=== PATIENT | female | born 1990 | race Caucasian/White ===

== ENCOUNTER 2019-01-09 19:13 | Emergency (ER) | payer OTHER ==
[~2019-01-09] VITALS: Wt 78.8 kg
[2019-01-09] MEDS ORDERED: ACETAMINOPHEN 325 MG TAB PO STA (20:43)
[2019-01-09 23:07] VITALS: BP 102/70; PULSE 71; RESP 18
--- NOTE | 2019-01-10 00:47 | ERD ---
ER Documentation Chief Complaint Chief Complaint 7 WEEKS PG, VAG BLEED X'S 10 DAYS HPI 28 year-old female who is reportedly 7 weeks , G1, last menstrual cycle 11/08/2018 presenting to the emergency department with complaints of intermittent vaginal bleeding for the past 1 week but worsening today. She used 1 pad throughout the day today. She did see a large clot. She has had an ultrasound during this which was reportedly normal. She denies any fevers, chills, or other symptoms at this time. Associated symptoms include mild pelvic pain. ROS All systems reviewed and are negative except as per history of present illness. Allergies Allergies: Coded Allergies: No Known Allergy (Unverified , 01/09/19) PMhx/Soc Medical and Surgical Hx: pt denies Medical Hx, pt denies Surgical Hx Hx Alcohol Use: No Hx Substance Use: No Hx Tobacco Use: No Smoking Status: Never smoker FmHx Family History: No diabetes Physical Exam Vitals Vital Signs Date Temp Pulse Resp B/P (MAP) Pulse Ox O2 O2 Flow FiO2 Time Delivery Rate 01/09/19 98.2 71 18 102/70 100 Room Air 23:07 (81) 01/09/19 98.8 74 18 129/63 99 19:43 (85) Physical Exam Const: No acute distress Head: Atraumatic Eyes: Normal Conjunctiva ENT: Normal External Ears, Nose and Mouth. Neck: Full range of motion. No meningismus. Resp: Clear to auscultation bilaterally Cardio: Regular rate and rhythm, no murmurs Abd: Soft, non tender, non distended. Normal bowel sounds. No rebound tenderness or guarding. No McBurney's point tenderness. No pelvic tenderness on palpation. Skin: No petechiae or rashes Back: No midline or flank tenderness Ext: No cyanosis, or edema Neur: Awake and alert Psych: Normal Mood and Affect Result Diagram: 01/09/192131 Results 24 hrs Laboratory Tests Test 01/09/19 20:57 01/09/19 21:32 Urine Color YELLOW Urine Clarity SLIGHTLY CLOUDY Urine pH 6.0 Urine Specific [place] 1.027 Urine Ketones NEGATIVE mg/dL Urine Nitrite NEGATIVE mg/dL Urine Bilirubin NEGATIVE mg/dL Urine Urobilinogen NEGATIVE mg/dL Urine Leukocyte Esterase 2+ Jim/ul Urine Microscopic RBC 44 /HPF Urine Microscopic WBC 30 /HPF Urine Squamous Epithelial Cells FEW /HPF Urine Bacteria FEW /HPF Urine Mucus FEW /HPF Urine Hemoglobin 3+ mg/dL Urine Glucose NEGATIVE mg/dL Urine Total Protein NEGATIVE mg/dl White Blood Count 10.0 10^3/ul Red Blood Count 4.48 10^6/ul Hemoglobin 13.6 g/dl Hematocrit 40.6 % Mean Corpuscular Volume 90.6 fl Mean Corpuscular Hemoglobin 30.4 pg Mean Corpuscular Hemoglobin Concent 33.5 g/dl Red Cell Distribution Width 13.0 % Platelet Count 301 10^3/UL Mean Platelet Volume 8.8 fl Immature Granulocytes % 0.300 % Neutrophils % 66.3 % Lymphocytes % 24.7 % Monocytes % 6.6 % Eosinophils % 1.9 % Basophils % 0.2 % Nucleated Red Blood Cells % 0.0 /100WBC Immature Granulocytes # 0.030 10^3/ul Neutrophils # 6.6 10^3/ul Lymphocytes # 2.5 10^3/ul Monocytes # 0.7 10^3/ul Eosinophils # 0.2 10^3/ul Basophils # 0.0 10^3/ul Nucleated Red Blood Cells # 0.0 10^3/ul Beta HCG, Quantitative 854743.0 mIU/ml Current Medications Medications Dose Sig/Maddy Start Time Status Last (Trade) Ordered Route PRN Stop Time Admin Dose Reason Admin 650 mg ONCE STAT 01/09/19 DC 01/09/19 Acetaminophen PO 20:43 21:38 (Tylenol 01/09/19 20:45 Tab) Procedures/MDM 28-year-old female presenting to the emergency department complaining of vaginal bleeding intermittently for the past 1 week. She is reportedly 7 weeks . Obstetrics ultrasound showed a single live intrauterine with heart tones present. Beta hCG was consistent with term of . Urinalysis showed evidence of urinary tract infection, but the patient is Gilberto be treating already being treated by her primary care physician with Macrobid. No evidence of pyonephritis, sepsis, ectopic , ovarian torsion, tubo- ovarian abscess, or other emergencies. Patient stable and appropriate for discharge and further outpatient management with prescriptions. She was in agreement with the diagnosis, plan, need for follow-up, return precautions. Diagnosis most consistent with threatened . Patient was advised to follow-up with her [facility] physician within the next 24 to 48 hours. No evidence of life-threatening pathology at time of discharge. Pt/family in agreement with discharge plan/diagnosis. Pt/family advised to return immediately with any new or worsening symptoms. Follow-up with primary care physician within the next 1- 2 days. [place] [address] Radiology Main Line: [phone] DIAGNOSTIC IMAGING REPORT Patient: JOSE MANUEL ROTHMAN : 1990 Age: 28 Sex: F MR #: [id number] DOS: 01/09/192042 Ordering MD: INDERJIT GONZÁLES PA-C Location: [facility] Room/Bed: PROCEDURE: US OB Limited. CLINICAL INDICATION: with pelvic pain. Vaginal bleeding. TECHNIQUE: Transabdominal and transvaginal color flow, Doppler and oliva scale ultrasound images of the pelvis were obtained. COMPARISON: No prior studies are available for comparison. FINDINGS: Intrauterine gestation: Age: 7 weeks 1 days. Mean crown-rump length: 1.1 cm. Yolk sac: Visualized. heart rate: 152 bpm. Subchorionic collection: None. Uterus: Size: 9.1 x 6.4 x 7.7 cm. Masses: None. Nabothian cysts: None. Right ovary: Size: 2.9 x 2.6 x 2.5 cm. Lesions: None. Vascularity: Normal. Left ovary: Size: 2.7 x 1.8 x 1.7 cm. Lesions: None. Vascularity: Normal. Adnexae: Masses: 1.3 cm left paraovarian cyst. 1.0 cm right paraovarian cyst. Fluid: None. IMPRESSION: Single live intrauterine with an estimated gestational age of 7 weeks 1 day, corresponding to an estimated date of delivery of August 27, 2019. Continued follow-up to assess for normal development is recommended.. Bilateral paraovarian cysts measuring 1.3 cm on the left and 1.0 cm on the right. RPTAT: AA .Marcellus Luu MD, Date Time Electronically viewed and signed by .Marcellus Luu MD, on 01/09/2019 22:22 .P/ CC: INDERJIT GONZÁLES PA-C [id number] [facility] [employer] [facility] Diagnosis: Primary Impression: Vaginal bleeding in patient at less than 20 weeks ges... Condition: Fair Patient Instructions: Bleeding During Early Referrals: [facility] (PCP) [facility] [place] [address] [facility] [address] [place] [address] OFFICE FAX [facility] [address] [place], [place] [id number]STRONG [address] [address] [place] [address] [address] [facility] [address] [facility], [address], [facility] [address] [address] [address] [place] [address] [facility] [address] [place] [address] [facility] [id number] - DEXTER [address]ANGEL [address], [facility] [address] [address] [address] [facility]. [address], [place] [id number] [address] [address] [place], [place] [id number] Additional Instructions: Call your primary care doctor TOMORROW for an appointment during the next 1-2 days.See the doctor sooner or return here if your condition worsens before your appointment time. INDERJIT GONZÁLES PA-C January 10, 2019 00:47
== END 2019-01-09 23:08 | disposition home or self-care (01) ==
LOC: FTE 19:13
DX: O20.9 Hemorrhage in early pregnancy, unspecified (principal); R10.2 Pelvic and perineal pain; Z3A.01 Less than 8 weeks gestation of pregnancy
CPT/HCPCS: 36415; 76801; 76817; 81001; 84702; 85025; 86900; 86901; Z7502; Z7610

== ENCOUNTER 2019-02-22 19:39 | Emergency (ER) | payer OTHER ==
[~2019-02-22] VITALS: Ht 157.5 cm; Wt 81.1 kg
[2019-02-22 19:42] VITALS: Ht 157.5 cm; Wt 81.1 kg
[2019-02-22] MEDS ORDERED: ACETAMINOPHEN 500 MG TAB PO STA (20:10)
--- NOTE | 2019-02-22 20:10 | ERD ---
ER Documentation Chief Complaint Chief Complaint left upper abd pain x 2 weeks, states 13 weeks , denies vb HPI This is a 28-year-old female presents emergency department with complaints of epigastric pain that is on and off for about 2 weeks. Also complains of pelvic pain that is on and off for about a week. Stated that she came here because she is concerned at this time. States that she is 13 weeks . Patient is deaf and mute. Patient communicates by writing. She saw her OB last Sunday. Wrote that her OBs name is Loly and is located on [facility]. Patient is taking Reglan and vitamins at home. Denies. Denies family history of heart attack before the age of 50. LMP: 11/22/2017. JACINTO: 08/25/2019. G1, . Denies headache, head injury, loss of consciousness, dizziness, neck pain, neck stiffness, throat pain, difficulty swallowing, difficulty breathing lying flat, shoulder pain, chest pain, back pain, nausea, vomiting, constipation, diarrhea, urinary symptoms, loss of bowel and bladder control, trauma, injury, falls, difficulty walking due to pain, numbness or tingling sensation, calf pain, recent travel, recent major surgery in the last 3 weeks, calf pain, recent long travel, recent exposure to any illness, recent antibiotic use in the last 3 months, fever, chills, seizures. Past medical history: Denies. Surgical history: Denies. Social: Denies smoking, use of alcoholic beverages, use of illegal drugs. ROS All systems reviewed and are negative except as per history of present illness. Medications Home Meds Active Scripts Metoclopramide* (Reglan*) 10 Mg Tablet, 10 MG PO Q6 PRN for NAUSEA AND/OR VOMITING, #20 TAB Prov:PASILABANAGAAR F 02/22/19 Vit No.124/Iron/FA ( Vitamin Tablet) 1 Each Tablet, 1 EACH PO DAILY, #30 TAB Prov:PASILABAN,KLAR F 02/22/19 Acetaminophen* (Tylophen*) 500 Mg Capsule, 1 CAP PO Q6H PRN for PAIN AND OR ELEVATED TEMP, #20 CAP Prov:PASILABAN,KLAR F 02/22/19 Allergies Allergies: Coded Allergies: No Known Allergy (Unverified , 01/09/19) PMhx/Soc Medical and Surgical Hx: pt denies Surgical Hx Hx Miscellaneous Medical Probl: Yes (DEAF/MUTE) Hx Alcohol Use: No Hx Substance Use: No Hx Tobacco Use: No Smoking Status: Never smoker Physical Exam Vitals Vital Signs Date Temp Pulse Resp B/P (MAP) Pulse Ox O2 O2 Flow FiO2 Time Delivery Rate 02/22/19 98.8 88 18 120/60 96 Room Air 23:23 (80) 02/22/19 99.6 86 18 118/56 99 19:42 (76) Physical Exam Const: No acute distress Head: Atraumatic Eyes: Normal Conjunctiva. Color appears normal for ethnicity. ENT: Normal External Ears, Nose and Mouth. Neck: Full range of motion. No meningismus. Resp: Clear to auscultation bilaterally. Chest area: No vesicular lesions. Examined with female tile layer. No signs of trauma. Cardio: Regular rate and rhythm, no murmurs Abd: Soft, non tender, non distended. Normal bowel sounds. No CVA tenderness. Ambulatory with steady gait and without pain to abdomen. Skin: No petechiae or rashes. Color appears normal for ethnicity. No skin tenting. No signs of severe dehydration. Back: No midline or flank tenderness. Color appears normal for ethnicity. No skin tenting. No signs of severe dehydration. Ext: No cyanosis, or edema Neur: Awake and alert. No neurological deficits. Psych: Normal Mood and Affect Result Diagram: 02/22/19203302/22/192033 Results 24 hrs Laboratory Tests Test 02/22/19 20:34 White Blood Count 10.7 10^3/ul Red Blood Count 4.24 10^6/ul Hemoglobin 12.9 g/dl Hematocrit 37.3 % Mean Corpuscular Volume 88.0 fl Mean Corpuscular Hemoglobin 30.4 pg Mean Corpuscular Hemoglobin Concent 34.6 g/dl Red Cell Distribution Width 12.3 % Platelet Count 292 10^3/UL Mean Platelet Volume 8.9 fl Immature Granulocytes % 0.500 % Neutrophils % 72.1 % Lymphocytes % 19.2 % Monocytes % 7.3 % Eosinophils % 0.5 % Basophils % 0.4 % Nucleated Red Blood Cells % 0.0 /100WBC Immature Granulocytes # 0.050 10^3/ul Neutrophils # 7.7 10^3/ul Lymphocytes # 2.1 10^3/ul Monocytes # 0.8 10^3/ul Eosinophils # 0.1 10^3/ul Basophils # 0.0 10^3/ul Nucleated Red Blood Cells # 0.0 10^3/ul Prothrombin Time 12.3 Sec Prothrombin Time Ratio 1.0 INR International Normalized Ratio 0.90 Activated Partial Thromboplast Time 26.3 Sec Urine Color YELLOW Urine Clarity CLEAR Urine pH 5.0 Urine Specific [place] 1.023 Urine Ketones NEGATIVE mg/dL Urine Nitrite NEGATIVE mg/dL Urine Bilirubin NEGATIVE mg/dL Urine Urobilinogen NEGATIVE mg/dL Urine Leukocyte Esterase NEGATIVE Jim/ul Urine Hemoglobin NEGATIVE mg/dL Urine Glucose NEGATIVE mg/dL Urine Total Protein NEGATIVE mg/dl Sodium Level 138 mmol/L Potassium Level 4.0 mmol/L Chloride Level 106 mmol/L Carbon Dioxide Level 23 mmol/L Anion Gap 9 Blood Urea Nitrogen 9 mg/dl Creatinine 0.42 mg/dl Est Glomerular Filtrat Rate mL/min > 60 mL/min Glucose Level 93 mg/dl Calcium Level 9.8 mg/dl Total Bilirubin 0.3 mg/dl Direct Bilirubin 0.00 mg/dl Indirect Bilirubin 0.3 mg/dl Aspartate Amino Transf (AST/SGOT) 18 IU/L Alanine Aminotransferase (ALT/SGPT) 13 IU/L Alkaline Phosphatase 50 IU/L Total Protein 7.4 g/dl Albumin 4.0 g/dl Globulin 3.40 g/dl Albumin/Globulin Ratio 1.17 Amylase Level 85 U/L Lipase 75 U/L Beta HCG, Quantitative 06608.0 mIU/ml Current Medications Medications Dose Sig/Maddy Start Time Status Last (Trade) Ordered Route PRN Stop Time Admin Dose Reason Admin 500 mg ONCE STAT 02/22/19 DC 02/22/19 Acetaminophen PO 20:10 20:35 (Tylenol 02/22/19 20:16 Tab) Procedures/MDM Diagnostic tests: Urinalysis: Culture urine: Sent. hCG quantitative: 07686.0 Type and Rh: Positive. Blood works: Reviewed. No white count. Gallbladder ultrasound: Cholelithiasis without ultrasound evidence of acute cholecystitis. No evidence of right hydronephrosis. Renal ultrasound: Sonographically unremarkable right kidney. Sonographically unremarkable left kidney. OB ultrasound: Single live intrauterine fetus at approximately 14 weeks 4 days by the above biometrics. The estimated weight is 97 g. Longitudinal lie, cephalic presentation. Unremarkable anterior placenta. Subjectively normal amniotic fluid volume. Treatment: Tylenol. I offered the patient to stay here in the emergency department but she strongly refused. Patient communicated by writing that she prefers to be discharged and that she has good follow-up with her OB Re-evaluation: No episode of emesis here in the emergency department. Denies chest pain, back pain, abdominal pain, pelvic pain, epigastric pain, vaginal bleeding. Negative Baht sign but negative Esther sign (heel jar test). Negative psoas sign. Negative Rovsing sign. No CVA tenderness. No pelvic tenderness. Able to jump twice without developing lower abdominal pain. No signs of hemorrhaging. Patient is comfortable to go home. Differential diagnosis I have low suspicion for pancreatitis, cholecystitis, ectopic , abruptio placenta, hemorrhaging, threatened , miscarriage, demise, placenta previa. Final diagnosis: Cholelithiasis. Abdominal pain in . Prescription: Tylenol. vitamins. Reglan. Follow-up with OB in the next 24-48 hours for a recheck of hCG levels and possible doing another ultrasound. Come back here in the emergency department for any new symptoms or any worsening symptoms. All questions and concerns were answered. Patient and family members verbalized understanding and agreed with plan of care. Hemodynamically stable on discharge. Departure Diagnosis: Primary Impression: Cholelithiasis Additional Impression: Abdominal pain affecting Condition: Stable Additional Instructions: Follow-up with OB in the next 24-48 hours for a recheck of hCG levels and possible doing another ultrasound. Or come back here in the emergency department for a repeat HCG levels or repeat ultrasound. Come back here in the emergency department for any new symptoms or any worsening symptoms. CARA CHAVEZ Feb 22, 2019 20:10
[2019-02-22] MEDS ORDERED: METO10TA92 PO (22:56)
[2019-02-22] MEDS ORDERED: ACET500C5 PO (22:56)
[2019-02-22] MEDS ORDERED: PREN-93 PO (22:56)
[2019-02-22 23:23] VITALS: BP 120/60; PULSE 88; RESP 18
== END 2019-02-22 23:24 | disposition home or self-care (01) ==
LOC: FTE 19:39
DX: O26.892 Other specified pregnancy related conditions, second trimester (principal); O99.612 Diseases of the digestive system complicating pregnancy, second trimester; R10.2 Pelvic and perineal pain; Z3A.14 14 weeks gestation of pregnancy
CPT/HCPCS: 36415; 76705; 76775; 76805; 80053; 81003; 82150; 83690; 84702; 85025; 85610; 85730; 86900; 86901; 87086; Z7502; Z7610

== ENCOUNTER 2019-02-25 05:34 | Emergency (ER) | payer OTHER ==
[~2019-02-25] VITALS: Ht 157.5 cm; Wt 81.3 kg
[~2019-02-25 05:34] MED LIST: ACET500C5 PO; METO10TA92 PO; PREN-93 PO
[2019-02-25 05:44] VITALS: BP 124/67; PULSE 103; RESP 22; Ht 157.5 cm; Wt 81.3 kg
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
== END 2019-02-25 08:39 | disposition home or self-care (01) ==
LOC: FTE 05:34
DX: O26.892 Other specified pregnancy related conditions, second trimester (principal); R10.84 Generalized abdominal pain; Z3A.15 15 weeks gestation of pregnancy
CPT/HCPCS: 36415; 76805; 80053; 81001; 84702; 85025; Z7502

== ENCOUNTER → 2019-03-07 | Emergency (ER) | payer OTHER ==
[~2019-03-07] VITALS: Ht 157.5 cm; Wt 82.4 kg
[~2019-03-07] MED LIST changes: +CEPH-443 PO
[2019-03-07 19:01] VITALS: BP 113/56; PULSE 103; RESP 20; Ht 157.5 cm; Wt 82.4 kg
--- NOTE | 2019-03-07 20:39 | ERD ---
ER Documentation Chief Complaint Chief Complaint vaginal bleeding since 1800. states 15 weeks HPI 20-year-old female, G2, P0 at approximately 15 weeks, presents to the emergency department, complaining of one episode of vaginal bleeding approximately at 6 PM. The patient denies abdominal pain, no fever, no trauma, the patient went to see her doctor today. No other complaints. ROS All systems reviewed and are negative except as per history of present illness. Medications Home Meds Active Scripts Cephalexin* (Keflex*) 500 Mg Capsule, 500 MG PO QID for 7 Days, CAP Prov:JOSE MANUEL VALE MD 03/07/19 Metoclopramide* (Reglan*) 10 Mg Tablet, 10 MG PO Q6 PRN for NAUSEA AND/OR VOMITING, #20 TAB Prov:CARA CHAVEZ F 02/22/19 Vit No.124/Iron/FA ( Vitamin Tablet) 1 Each Tablet, 1 EACH PO DAILY, #30 TAB Prov:PASILABAN,AGAAR F 02/22/19 Acetaminophen* (Tylophen*) 500 Mg Capsule, 1 CAP PO Q6H PRN for PAIN AND OR ELEVATED TEMP, #20 CAP Prov:PASILABAN,AGAAR F 02/22/19 Allergies Allergies: Coded Allergies: No Known Allergy (Unverified , 01/09/19) PMhx/Soc Medical and Surgical Hx: pt denies Surgical Hx Hx Miscellaneous Medical Probl: Yes (DEAF/MUTE) Hx Alcohol Use: No Hx Substance Use: No Hx Tobacco Use: No Smoking Status: Never smoker FmHx Family History: No diabetes, No coronary disease Physical Exam Vitals Vital Signs Date Temp Pulse Resp B/P (MAP) Pulse Ox O2 O2 Flow FiO2 Time Delivery Rate 03/07/19 98.6 103 20 113/56 96 19:01 (75) Physical Exam Const: No acute distress Head: Atraumatic Eyes: Normal Conjunctiva ENT: Normal External Ears, Nose and Mouth. Neck: Full range of motion. No meningismus. Resp: Clear to auscultation bilaterally Cardio: Regular rate and rhythm, no murmurs Abd: Soft, non tender, non distended. Normal bowel sounds Skin: No petechiae or rashes Back: No midline or flank tenderness Ext: No cyanosis, or edema Neur: Awake and alert Psych: Normal Mood and Affect Results 24 hrs Laboratory Tests Test 03/07/19 20:17 Urine Color YELLOW Urine Clarity SLIGHTLY CLOUDY Urine pH 5.0 Urine Specific [place] 1.031 Urine Ketones TRACE mg/dL Urine Nitrite NEGATIVE mg/dL Urine Bilirubin NEGATIVE mg/dL Urine Urobilinogen NEGATIVE mg/dL Urine Leukocyte Esterase 2+ Jim/ul Urine Microscopic RBC > 182 /HPF Urine Microscopic WBC 22 /HPF Urine Squamous Epithelial Cells FEW /HPF Urine Calcium Oxalate Crystals MODERATE /HPF Urine Mucus FEW /HPF Urine Hemoglobin 3+ mg/dL Urine Glucose NEGATIVE mg/dL Urine Total Protein NEGATIVE mg/dl Patient: JOSE MANUEL ROTHMAN : 1990 Age: 28 Sex: F MR #: [id number] DOS: 03/07/192025 Ordering MD: JOSE MANUEL VALE MD Location: [facility] Room/Bed: PROCEDURE: US OB. CLINICAL INDICATION: Size and dates , vaginal bleeding TECHNIQUE: Multiple sonographic images of the pelvis and gravid uterus were obtained. The images were reviewed on a PACS workstation. COMPARISON: 02/25/19 FINDINGS: The cervix measures 3.6 cm in length. Gestation: Single live intrauterine gestation. Cardiac activity: 152 beats per minute. Presentation: Variable Placenta: Location: Anterior. Appearance: No previa or abruption. MVP = 4.0 cm Measurements: BPD = 3.3 cm, 16 weeks and 1 day HC = 11.4 cm, 15 weeks and 4 days AC = 11.3 cm, 17 weeks and 1 day FL = 2.3 cm, 17 weeks and 0 days Gestational Age: AUA estimated gestational age: 16 weeks 3 days AUA estimated date of delivery: 08/19/19 The EFW = 172 g The ovaries were not visualized. RPTAT: AA IMPRESSION: Single live intrauterine gestation of 16 weeks 3 days by ultrasound criteria. .Nikunj Melendez MD, Date Time Electronically viewed and signed by .Nikunj Melendez MD, on 03/07/2019 21:01 Procedures/MDM Vital signs stable, Physical exam unremarkable. Differential diagnosis include but not limited to: UTI, threatening , incomplete versus complete , ectopic , physiologic implantation bleeding, molar . Physical examination and clinical presentation most likely consistent with UTI and vaginal bleeding at 15wk. Normal US. During the ED course the patient remained hemodynamically stable and asymptomatic. Results and clinical impression discussed with patient who agrees with management. The patient is stable to be treated outpatient and will be discharged home with close monitoring and follow-up in 2 days with her primary physician. Bed rest and pelvic rest recommended until further medical evaluation. The patient was instructed regarding the outcomes and the potential complications like severe bleeding and . If the patient presents severe bleeding or pain, she was instructed to return to the hospital immediately. Disclaimer: Inadvertent spelling and grammatical errors are likely due to EHR/dictation software use and do not reflect on the overall quality of patient care. Also, please note that the electronic time recorded on this note does not necessarily reflect the actual time of the patient encounter. Departure Diagnosis: Primary Impression: with 15 completed weeks gestation Additional Impressions: Vaginal bleeding before 22 weeks gestation UTI (urinary tract infection) Condition: Stable Additional Instructions: Thank you very much for allowing us to participate in your care. Your health and safety is our top priority at [facility]. The evaluation in the emergency department has been done to rule out an acute emergency. Chronic, osi-zbpu-nekeburlwsd conditions may have not been evaluated; therefore, you need to follow up with a primary care provider in the next 48h. If symptoms persist, worsen or new symptoms develop, then patient should return to the ED immediately. Call your primary care doctor TOMORROW for an appointment during the next 2-4 days and bring all the information provided. Have prescriptions filled and follow precisely the directions on the label. If the symptoms get worse and your provider is unavailable, return to the Emergency Department immediately. In ultrasound JOSE MANUEL VALE MD Mar 07, 2019 20:38
== END | disposition home or self-care (01) ==
LOC: FTE 18:56
DX: O20.9 Hemorrhage in early pregnancy, unspecified (principal); O23.42 Unspecified infection of urinary tract in pregnancy, second trimester; Z3A.16 16 weeks gestation of pregnancy
CPT/HCPCS: 76805; 81001; 87086; Z7502

== ENCOUNTER 2019-03-14 14:16 | Emergency (ER) | payer OTHER ==
[~2019-03-14] VITALS: Ht 160 cm; Wt 82.8 kg
[2019-03-14 14:27] VITALS: BP 121/58; PULSE 79; RESP 16; Ht 160 cm; Wt 82.8 kg
--- NOTE | 2019-03-14 16:55 | ERD ---
ER Documentation Chief Complaint Chief Complaint PT STATES SHE HAS A VAGINAL INFX AND SHE'S 16 WKS PREG WITH BLEEDING. DEAF HPI 28-year-old deaf female presenting to the ED because she is 16 weeks and she was recently treated with UTI and feels like she still has symptoms. When inquired more information about the UTI the patient is still taking the medication and was just seen the other day for this. Patient is also concerned for some small bug bites on her arms and some vaginal spotting that is been going on for the past few days. Patient wants to make sure baby is okay because she is had a miscarriage in the past. Patient is G2, P0, A1 and had a spontaneous at 12 weeks 1 year ago. Patient states that she is taking vitamins and Keflex. Patient denies any allergies to medications. ROS All systems reviewed and are negative except as per history of present illness. Medications Home Meds Active Scripts Hydrocortisone* Topical (Hydrocortisone* Topical) 2.5%-28.3 Gm Cream..g., 1 APPLIC TOP BID, #1 TUB Prov:NANCY VIEIRA PA-C 03/14/19 Acetaminophen* (Tylenol*) 325 Mg Tablet, 1 TAB PO Q6 PRN for PAIN AND OR ELEVAT ED TEMP, #20 TAB Prov:NANCY VIEIRA PA-C 03/14/19 Cephalexin* (Keflex*) 500 Mg Capsule, 500 MG PO QID for 7 Days, CAP Prov:JOSE MANUEL VALE MD 03/07/19 Metoclopramide* (Reglan*) 10 Mg Tablet, 10 MG PO Q6 PRN for NAUSEA AND/OR VOMITING, #20 TAB Prov:CARA CHAVEZ 02/22/19 Vit No.124/Iron/FA ( Vitamin Tablet) 1 Each Tablet, 1 EACH PO DAILY, #30 TAB Prov:CARA CHAVEZ 02/22/19 Acetaminophen* (Tylophen*) 500 Mg Capsule, 1 CAP PO Q6H PRN for PAIN AND OR ELEVATED TEMP, #20 CAP Prov:CARA CHAVEZ 02/22/19 Allergies Allergies: Coded Allergies: No Known Allergy (Unverified , 01/09/19) PMhx/Soc Medical and Surgical Hx: pt denies Surgical Hx Hx Miscellaneous Medical Probl: Yes (DEAF/MUTE) Hx Alcohol Use: No Hx Substance Use: No Hx Tobacco Use: No Smoking Status: Never smoker FmHx Family History: No diabetes, No coronary disease, No other Physical Exam Vitals Vital Signs Date Temp Pulse Resp B/P (MAP) Pulse Ox O2 O2 Flow FiO2 Time Delivery Rate 03/14/19 97.9 79 16 121/58 95 14:27 (79) Physical Exam Const: Mild distress Neck: Full range of motion. No meningismus. Resp: Clear to auscultation bilaterally Cardio: Regular rate and rhythm, no murmurs Abd: Soft, non tender, non distended. Normal bowel sounds Skin: No petechiae or rashes Back: No midline or flank tenderness Result Diagram: 03/14/19 1525 Results 24 hrs Laboratory Tests Test 03/14/19 15:25 White Blood Count 12.3 10^3/ul Red Blood Count 3.87 10^6/ul Hemoglobin 11.7 g/dl Hematocrit 34.4 % Mean Corpuscular Volume 88.9 fl Mean Corpuscular Hemoglobin 30.2 pg Mean Corpuscular Hemoglobin Concent 34.0 g/dl Red Cell Distribution Width 12.0 % Platelet Count 306 10^3/UL Mean Platelet Volume 8.9 fl Immature Granulocytes % 0.600 % Neutrophils % 81.9 % Lymphocytes % 11.9 % Monocytes % 4.6 % Eosinophils % 0.8 % Basophils % 0.2 % Nucleated Red Blood Cells % 0.0 /100WBC Immature Granulocytes # 0.080 10^3/ul Neutrophils # 10.1 10^3/ul Lymphocytes # 1.5 10^3/ul Monocytes # 0.6 10^3/ul Eosinophils # 0.1 10^3/ul Basophils # 0.0 10^3/ul Nucleated Red Blood Cells # 0.0 10^3/ul Urine Color YELLOW Urine Clarity SLIGHTLY CLOUDY Urine pH 5.0 Urine Specific [place] 1.024 Urine Ketones NEGATIVE mg/dL Urine Nitrite NEGATIVE mg/dL Urine Bilirubin NEGATIVE mg/dL Urine Urobilinogen NEGATIVE mg/dL Urine Leukocyte Esterase 2+ Jim/ul Urine Microscopic RBC 4 /HPF Urine Microscopic WBC 35 /HPF Urine Mucus FEW /HPF Urine Hemoglobin NEGATIVE mg/dL Urine Glucose NEGATIVE mg/dL Urine Total Protein NEGATIVE mg/dl Beta HCG, Quantitative 83531.0 mIU/ml Procedures/MDM ED course: The patient was stable throughout the ED course. The patient and/or family informed of laboratory and diagnostic imaging results throughout the ED course. . Diagnostic imaging: Read by radiologist Nora PROCEDURE: US OB. CLINICAL INDICATION: Vaginal bleeding TECHNIQUE: Multiple sonographic images of the pelvis and gravid uterus were obtained. The images were reviewed on a PACS workstation. COMPARISON: 03/07/2019 FINDINGS: Gestation: Single live intrauterine gestation. Cardiac activity: 161 beats per minute. Presentation: Variable Placenta: Location: Anterior. Appearance: No previa or abruption. MVP = 2.8 cm RPTAT: AA IMPRESSION: Single live intrauterine gestation . Anterior placenta with no evidence of previa or abruption. Procedures: None Medications given in ER: None Patient tolerated medication well with no adverse reactions. Patient reported improvement in pain. Medical decision making: This is a 28-year female who is 16 weeks who presents with vaginal bleeding. Vital signs were reviewed. Patient was afebrile. Patient was hemodynamically stable. Urine test was positive. Quantitative b-HCG was 367[address].0. Patient's blood type is A+ no need for RhoGam at this time. CBC showed no evidence of systemic infection or severe anemia. Patient's ultrasound showed single live intrauterine . given these findings, the patients presentation is most consistent with threatened . I have a much lower clinical concern for ectopic , ruptured ectopic , molar , subchorionic hematoma, spontaneous , incomplete , complete , missed , placental abruption, placental previa, vasa previa, uterine rupture, anembyronic . I advised the patient that we need to monitor her beta hCG level and have a repeat ultrasound done in 2 days. The patient's UA indicated that she still has a UTI but she is currently taking the antibiotic Keflex. This was prescribed by her OB. I advised her that she needs to continue this medication until it is finished. At this time I have low suspicion for low suspicion for low suspicion for cauda equine syndrome, spinal fractures, epidural abscess, spinal metastases, osteomyelitis, aortic dissection, ruptured or leaking AA, DJD, sciatica, lumbar strain, muscle spasm, pyelonephritis or nephrolithiasis. Patient was requesting a prescription for hydrocortisone topical because she gets skin rashes from time to time and that medication helps. Advised patient that if symptoms worsen or she experiences worsening bleeding or any discomfort return to ER immediately. Otherwise she needs to follow-up with her OB tomorrow regarding this visit. Patient had no further questions upon discharge and is in agreement to the treatment plan. Prescription for home: Acetaminophen Hydrocortisone topical I have discussed with the patient proper use and common side effects to expert with the medication . I advised the patient/family to speak with the pharmacist dispensing the medication to be advised of any potential drug interactions with other medication or supplements they may be taking. Discharge: At this time, patient is stable for discharge and outpatient management. I have instructed the patient to follow-up with his\her primary care physician in 1 to 2 days. I have discussed with the patient the possibility of needing to see a specialist for further work-up and imaging studies if symptoms persist. I have instructed the patient to promptly return to the ER for any new or worsening symptoms including increased pain, fever, nausea, vomiting, weakness or LOC. The patient and\or family expressed understanding of and agreement with this plan. All questions were answered. Home care instructions were provided. Disclaimer: Inadvertent spelling and grammatical errors are likely due to EHR\dictation software use and do not reflect on the overall quality of patient care. Also, please note that the electronic time recorded on the note does not necessarily reflect the actual time of the patient encounter. Departure Diagnosis: Primary Impression: Vaginal bleeding before 22 weeks gestation Condition: Stable NANCY VIEIRA PA-C Mar 14, 2019 16:54
[2019-03-14] MEDS ORDERED: ACET325T33 PO (17:01)
[2019-03-14] MEDS ORDERED: HC30CR25 TOP (17:13)
== END 2019-03-14 17:28 | disposition home or self-care (01) ==
LOC: FTE 14:16
DX: O20.9 Hemorrhage in early pregnancy, unspecified (principal); Z3A.16 16 weeks gestation of pregnancy
CPT/HCPCS: 36415; 76805; 81001; 84702; 85025; 86900; 86901; 87086; Z7502

== ENCOUNTER 2019-03-17 18:26 | Emergency (ER) | payer OTHER ==
[~2019-03-17] VITALS: Ht 160 cm; Wt 81.8 kg
[~2019-03-17 18:26] MED LIST changes: +ACET325T33 PO; +HC30CR25 TOP
[2019-03-17 18:41] VITALS: Ht 160 cm; Wt 81.8 kg
[2019-03-17] MEDS ORDERED: SOD CHLORIDE 0.9% 1,000 ML IV STA (20:17)
--- NOTE | 2019-03-17 21:32 | ERD ---
ER Documentation Chief Complaint Chief Complaint vaginal bleeding x 1 1/2 hour ago, states 16 weeks ago HPI This patient is a pleasant 28-year-old female who is deaf presenting to the emergency department accompanied by her mother with concerns for vaginal bleeding which began approximately 1.5-hour prior to arrival. She states she is approximately 16 weeks . She is G2, P0, A1 and had a spontaneous at 12 weeks approximately 1 year ago. She states she has had some mild intermittent spotting throughout her , however this is the most bleeding she has experienced. She also reports suprapubic cramping sensation which is moderate to severe. She took no medication for relief of symptoms. She denies any other symptoms currently. ROS All systems reviewed and are negative except as per history of present illness. Medications Home Meds Active Scripts Hydrocortisone* Topical (Hydrocortisone* Topical) 2.5%-28.3 Gm Cream..g., 1 APPLIC TOP BID, #1 TUB Prov:NANCY VIEIRA PA-C 03/14/19 Acetaminophen* (Tylenol*) 325 Mg Tablet, 1 TAB PO Q6 PRN for PAIN AND OR ELEVATED TEMP, #20 TAB Prov:NANCY VIEIRA PA-C 03/14/19 Cephalexin* (Keflex*) 500 Mg Capsule, 500 MG PO QID for 7 Days, CAP Prov:JOSE MANUEL VALE MD 03/07/19 Metoclopramide* (Reglan*) 10 Mg Tablet, 10 MG PO Q6 PRN for NAUSEA AND/OR VOMITING, #20 TAB Prov:CARA CHAVEZ 02/22/19 Vit No.124/Iron/FA ( Vitamin Tablet) 1 Each Tablet, 1 EACH PO DAILY, #30 TAB Prov:CARA CHAVEZ 02/22/19 Acetaminophen* (Tylophen*) 500 Mg Capsule, 1 CAP PO Q6H PRN for PAIN AND OR ELEVATED TEMP, #20 CAP Prov:CARA CHAVEZ 02/22/19 Allergies Allergies: Coded Allergies: No Known Allergy (Unverified , 01/09/19) PMhx/Soc Medical and Surgical Hx: pt denies Medical Hx, pt denies Surgical Hx Hx Miscellaneous Medical Probl: Yes (DEAF/MUTE) Hx Alcohol Use: No Hx Substance Use: No Hx Tobacco Use: No Smoking Status: Never smoker FmHx Family History: No diabetes Physical Exam Vitals Vital Signs Date Temp Pulse Resp B/P (MAP) Pulse Ox O2 O2 Flow FiO2 Time Delivery Rate 03/18/19 98.6 84 18 117/59 97 00:15 (78) 03/17/19 99.1 96 18 109/60 97 18:41 (76) Physical Exam Const: No acute distress Head: Atraumatic Eyes: Normal Conjunctiva ENT: Normal External Ears, Nose and Mouth. Neck: Full range of motion. No meningismus. Resp: Clear to auscultation bilaterally Cardio: Regular rate and rhythm, no murmurs Abd: Soft, non tender, non distended. Normal bowel sounds. No rebound tenderness or guarding. No McBurney's point tenderness. There is suprapubic tenderness to palpation bilaterally. Skin: No petechiae or rashes Back: No midline or flank tenderness Ext: No cyanosis, or edema Neur: Awake and alert Psych: Normal Mood and Affect Result Diagram: 03/17/19212803/17/192128 Results 24 hrs Laboratory Tests Test 03/17/19 20:04 03/17/19 21:29 Urine Color YELLOW Urine Clarity SLIGHTLY CLOUDY Urine pH 6.0 Urine Specific [place] 1.016 Urine Ketones NEGATIVE mg/dL Urine Nitrite NEGATIVE mg/dL Urine Bilirubin NEGATIVE mg/dL Urine Urobilinogen NEGATIVE mg/dL Urine Leukocyte Esterase 3+ Jim/ul Urine Microscopic RBC 131 /HPF Urine Microscopic WBC 58 /HPF Urine Hemoglobin 3+ mg/dL Urine Glucose NEGATIVE mg/dL Urine Total Protein NEGATIVE mg/dl White Blood Count 13.8 10^3/ul Red Blood Count 4.06 10^6/ul Hemoglobin 12.2 g/dl Hematocrit 36.9 % Mean Corpuscular Volume 90.9 fl Mean Corpuscular Hemoglobin 30.0 pg Mean Corpuscular Hemoglobin Concent 33.1 g/dl Red Cell Distribution Width 12.0 % Platelet Count 334 10^3/UL Mean Platelet Volume 8.8 fl Immature Granulocytes % 0.700 % Neutrophils % 76.9 % Lymphocytes % 15.9 % Monocytes % 5.5 % Eosinophils % 0.7 % Basophils % 0.3 % Nucleated Red Blood Cells % 0.0 /100WBC Immature Granulocytes # 0.100 10^3/ul Neutrophils # 10.6 10^3/ul Lymphocytes # 2.2 10^3/ul Monocytes # 0.8 10^3/ul Eosinophils # 0.1 10^3/ul Basophils # 0.0 10^3/ul Nucleated Red Blood Cells # 0.0 10^3/ul Sodium Level 137 mmol/L Potassium Level 3.7 mmol/L Chloride Level 102 mmol/L Carbon Dioxide Level 26 mmol/L Anion Gap 9 Blood Urea Nitrogen 11 mg/dl Creatinine 0.48 mg/dl Est Glomerular Filtrat Rate mL/min > 60 mL/min Glucose Level 90 mg/dl Calcium Level 9.9 mg/dl Total Bilirubin 0.2 mg/dl Direct Bilirubin 0.00 mg/dl Indirect Bilirubin 0.2 mg/dl Aspartate Amino Transf (AST/SGOT) 20 IU/L Alanine Aminotransferase (ALT/SGPT) 16 IU/L Alkaline Phosphatase 79 IU/L Total Protein 7.1 g/dl Albumin 4.0 g/dl Globulin 3.10 g/dl Albumin/Globulin Ratio 1.29 Beta HCG, Quantitative 80438.0 mIU/ml Current Medications Medications Dose Sig/Maddy Start Time Status Last (Trade) Ordered Route PRN Stop Time Admin Dose Reason Admin Sodium 1,000 ml @ Q1H STAT 03/17/19 DC 03/17/19 Chloride 1,000 mls/hr IV 20:17 21:25 03/17/19 21:16 [place] [id number] Radiology Main Line: [phone] DIAGNOSTIC IMAGING REPORT Patient: JOSE MANUEL ROTHMAN : 1990 Age: 28 Sex: F MR #: [id number] DOS: 03/17/19 0000 Ordering MD: INDERJIT GONZÁLES PA-C Location: [facility] Room/Bed: PROCEDURE: US OB. CLINICAL INDICATION: Vaginal bleeding TECHNIQUE: Multiple sonographic images of the pelvis and gravid uterus were obtained. The images were reviewed on a PACS workstation. COMPARISON: US PELVIS 03/16/2019 FINDINGS: Gestation: Single live intrauterine gestation. Cardiac activity: 179 beats per minute. Presentation: Vertex. Placenta: Location: Anterior. Appearance: No previa or abruption. MVP = 0.8 cm Measurements: BPD = 3.2 cm, 16 weeks and 1 day HC = 12.3 cm, 16 weeks and 1 day AC = 10.2 cm, 16 weeks and 1 day FL = 2.3 cm, 16 weeks and 5 days Gestational Age: AUA estimated gestational age: 16 weeks 2 days LMP estimated gestational age: 17 weeks 0 days AUA estimated date of delivery: 08/30/19 The EFW = 156 g, 14.3%ile based on LMP age. RPTAT: AA IMPRESSION: Single live intrauterine gestation of 16 weeks 2 days by ultrasound criteria. Persistent critical oligohydramnios with no significant amniotic fluid noted. .Nikunj Melendez MD, MD Date Time Electronically viewed and signed by .Nikunj Melendez MD, on 03/17/2019 21:3 3 .S/ CC: INDERJIT GONZÁLES PA-C [id number] Procedures/MDM 28-year-old female presents for vaginal bleeding. White blood cell count is 13.8, hemoglobin 12.2. [place] [address]. Patient is Rh positive. Urinalysis showed 3+ leukocytes consistent with urinary tract infection. Patient was advised to continue taking Keflex as prescribed. Pelvic ultrasound shows single live intrauterine gestation with heart tones present. Differential includes early , missed or ectopic . No adnexal masses appreciated. Patient presents with vaginal bleeding. Patient will be discharged home with instructions on the importance of a 2 day follow-up. Signs and symptoms do not suggest endometritis or septic . Patient return sooner for fevers, vomiting, shortness of breath or chest pain. Signs and symptoms do not suggest appendicitis, acute abdomen but patient should recheck as directed. Departure Diagnosis: Primary Impression: Vaginal bleeding in patient at less than 20 weeks gestation Condition: INDERJIT Sylvester PA-C Mar 17, 2019 21:32
[2019-03-18 00:15] VITALS: BP 117/59; PULSE 84; RESP 18
== END 2019-03-18 00:16 | disposition home or self-care (01) ==
LOC: FTE 18:26
DX: O20.9 Hemorrhage in early pregnancy, unspecified (principal); Z3A.16 16 weeks gestation of pregnancy
CPT/HCPCS: 36415; 76805; 80053; 81001; 84702; 85025; 86900; 86901; 96360; J7030; Z7502

== ENCOUNTER 2019-04-23 16:39 | Emergency (ER) | payer OTHER ==
[~2019-04-23] VITALS: Ht 162.6 cm; Wt 82.6 kg
[2019-04-23 16:43] VITALS: Ht 162.6 cm; Wt 82.6 kg
[2019-04-23 19:54] VITALS: BP 107/66; PULSE 67; RESP 18
== END 2019-04-23 19:57 | disposition home or self-care (01) ==
LOC: FTE 16:39
DX: N89.8 Other specified noninflammatory disorders of vagina (principal)
CPT/HCPCS: 81003; 81025; 87591; Z7502; 99284

== ENCOUNTER 2019-05-22 17:15 | Emergency (ER) | payer OTHER ==
[~2019-05-22] VITALS: Ht 162.6 cm; Wt 83.3 kg
[~2019-05-22 17:15] MED LIST changes: +FAMO-96 PO; +MAG-19 PO; +ONDA4TAB14 PO; +PROG200C11 PO
[2019-05-22 17:57] VITALS: Ht 162.6 cm; Wt 83.3 kg
[2019-05-22] MEDS ORDERED: SOD CHLORIDE 0.9% 1,000 ML IV ONE (20:00)
[2019-05-22 22:44] VITALS: BP 115/56; PULSE 86; RESP 16
== END 2019-05-22 23:08 | disposition home or self-care (01) ==
LOC: FTE 17:15
DX: N93.8 Other specified abnormal uterine and vaginal bleeding (principal)
CPT/HCPCS: 76856; 80053; 81001; 81025; 85025; 85610; 85730; 86850; 86900; 86901; J7030; Z7502